=== PATIENT | male | born 1990 | race Two or more races ===

== ENCOUNTER 2020-11-13 20:11 | Emergency (ER) | payer OTHER ==
[~2020-11-13] VITALS: Ht 167.6 cm; Wt 89.8 kg
[2020-11-13 20:11] VITALS: BP 163/114
--- NOTE | 2020-11-13 20:47 | NUR ---
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
--- NOTE | 2020-11-13 20:58 | NUR ---
covid swab collected and sent to the lab.
[2020-11-13 21:04] LABS: CALCIUM, SERUM 8.9 mg/dL (8.5-10.1); CARBON DIOXIDE 28 mmol/L (21-32); CHLORIDE 104 mmol/L (98-107); CREATININE 0.8 mg/dL (0.6-1.3); GLUCOSE 117 mg/dL (74-106); POTASSIUM 3.9 mmol/L (3.5-5.1); SODIUM SERUM 139 mmol/L (136-145); UREA NITROGEN, BLOOD 12 mg/dL (7-18)
--- NOTE | 2020-11-13 23:41 | NUR ---
PT IS RELEASED UNDER THE CARE OF [employer] IN STABLE CONDITION. PT IS MEDICALLY CLEARED FOR BOOKING. PT IS AMBULATORY ON STEADY GAIT.
== END 2020-11-13 23:43 ==
LOC: ER 20:13
DX: Z02.89 Encounter for other administrative examinations (principal); Z20.822 Contact with and (suspected) exposure to COVID-19
CPT/HCPCS: 36415; 80048; 82010; 82962; 87426; 99283; C9803